=== PATIENT | male | born 1945 | race Caucasian/White ===

== ENCOUNTER 2017-04-28 13:18 | Outpatient (CLI) | payer MEDICARE, OTHER | END 2017-04-28 13:19 | disposition home or self-care (01) | LOC: DI 13:18 | PROVIDERS: ATTEND Physician Assistant | DX: I10 Essential (primary) hypertension (principal); Z82.49 Family history of ischemic heart disease and other diseases of the circulatory system; I77.810 Thoracic aortic ectasia | CPT/HCPCS: 93306 ==

== ENCOUNTER 2017-04-28 14:09 | Outpatient (CLI) | payer MEDICARE, OTHER | END 2017-04-28 14:10 | disposition home or self-care (01) | LOC: RT 14:09 | PROVIDERS: ATTEND Physician Assistant | DX: I10 Essential (primary) hypertension (principal) ==

== ENCOUNTER 2017-08-20 09:09 | Outpatient (CLI) | payer MEDICARE, OTHER ==
[2017-08-20 18:08] LABS: ALBUMIN 4.4 g/dL (3.2-5.5); ALBUMIN/GLOBULIN RATIO 1.6 (1.0-2.2); ALKALINE PHOSPHATASE 50 IU/L (42-121); ALT ALANINE AMINOTRANSFERASE 26 IU/L (10-60); AST ASPARTATE AMINOTRANSFERASE 24 IU/L (10-42); BILIRUBIN,TOTAL 0.7 mg/dL (0.2-1.0); BUN - BLOOD UREA NITROGEN 21 mg/dL (6-20); CALCIUM 9.1 mg/dL (8.5-10.3); CARBON DIOXIDE - CO2 26 mmol/L (21-32); CHLORIDE 104 mmol/L (101-111); CHOL/HDL RATIO 1.7 (<5.0); CHOLESTEROL 159 mg/dL; GFR - MDRD 74 (>89); GLUCOSE 98 mg/dL (70-100); HDL CHOLESTEROL 92 mg/dL; LDL CHOLESTEROL,CALCULATED 56 mg/dL; LDL CHOLESTEROL,DIRECT 56 mg/dL; LDL/HDL RATIO 0.6 (<3.6); SODIUM 138 mmol/L (135-145); TOTAL PROTEIN 7.2 g/dL (6.7-8.2); VLDL CHOLESTEROL 11 mg/dL
== END 2017-08-20 09:10 | disposition home or self-care (01) ==
LOC: LAB.F 09:09
PROVIDERS: ATTEND Internal Medicine Cardiovascular Disease
DX: E78.5 Hyperlipidemia, unspecified (principal); I35.1 Nonrheumatic aortic (valve) insufficiency; I10 Essential (primary) hypertension
CPT/HCPCS: 36415; 80053; 80061

== ENCOUNTER 2020-05-30 11:22 | Outpatient (CLI) | payer MEDICARE, OTHER ==
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
== END 2020-05-30 11:23 | disposition home or self-care (01) ==
LOC: DI.S 11:22
PROVIDERS: ATTEND Registered Nurse
DX: M16.11 Unilateral primary osteoarthritis, right hip (principal)

== ENCOUNTER 2020-06-18 11:29 | Outpatient (CLI) | payer MEDICARE, OTHER ==
--- NOTE | 2020-06-18 16:11 | XRAY Report ---
PROCEDURE: Hand 3 View RT INDICATIONS: RT HAND PAIN TECHNIQUE: 3 views of the hand(s) acquired. COMPARISON: None FINDINGS: Bones: No fractures or dislocations. No suspicious bony lesions. Scattered IP degenerative narrowi ng is present. Mild radiocarpal narrowing is present. Lucency is present within the lunate, suggestiv e of a small cyst. Soft tissues: No suspicious soft tissue calcifications. IMPRESSION: Arthritic changes as above. Reviewed by: Melissa Morgan MD on 06/18/2020 4:10 PM [facility] Approved by: Melissa Morgan MD on 06/18/2020 4:10 PM PST Station ID: [id number]
== END 2020-06-18 11:30 | disposition home or self-care (01) ==
LOC: DI.S 11:29
PROVIDERS: ATTEND Nurse Practitioner Family
DX: M19.041 Primary osteoarthritis, right hand (principal)